=== PATIENT | female | born 2000 | race Caucasian/White ===

== ENCOUNTER 2023-10-27 07:36 | Outpatient (CLI) | payer OTHER, SELFPAY ==
[2023-10-27 09:15] LABS: Free T4 Free Thyroxine 0.85 ng/mL (0.78-2.19)
[2023-10-28 22:33] LABS: Insulin Level Total 11.4 uIU/mL
[2023-10-29 06:14] LABS: DHEA-Sulfate 262 mcg/dL (14-349); Prolactin 10.3 ng/mL
[2023-10-31 09:03] LABS: Testosterone Total 34 ng/dL (2-45)
== END 2023-10-27 07:37 | disposition home or self-care (01) ==
LOC: ANHLAB 07:39
PROVIDERS: PCP Physician Assistant Medical; Visit Provider Nurse Practitioner
DX: N92.6 Irregular menstruation, unspecified (principal)
CPT/HCPCS: 36415; 82627; 83036; 83525; 84144; 84146; 84403; 84439; 84443

== ENCOUNTER 2024-08-18 13:49 | Outpatient (CLI) | payer OTHER, SELFPAY ==
--- NOTE | ~2024-08-18 | CT_ITS ---
CT of the Abdomen and Pelvis: Indication: Abdominal pain Technique: 2.5 mm axial scans were obtained through the abdomen and pelvis following intravenous adm inistration of 100 cc of Omnipaque 350. Dose reduction technique was used on this scan by utilizing a utomated exposure control and iterative reconstruction technique. The dose-length product (DLP) was 8 98.54 mGy-cm. Findings: Scans through the lung bases are unremarkable. The liver, spleen, pancreas, gallbladder, adrenals and kidneys are within normal limits. No evidence of aortic aneurysm. No lymphadenopathy. No bowel obstruction or bowel wall thickening. There is no evidence to suggest acute appendicitis. Images through the pelvis were performed. Urinary bladder unremarkable. No pelvic mass seen. No ascit es. Impression: No significant abnormalities seen. Reviewed, dictated and finalized at location . Impression: No significant abnormalities seen.
--- OUTSIDE RECORDS SUMMARY | 2024-08-18 13:57 | XMS_ITS | Continuity of Care Document ---
Author Organization [facility] Address [address] [place] [address] Phone Care Team Providers Care Bill Distributor Name Role Phone Haim Huff MD Unavailable Unavailable Allergies, Adverse Reactions, Alerts Substance Reaction Status Criticality No Known Drug Allergies Other Active No I nformation Medications Medication Instructions Dosage Effective Dates (start - stop) Status Comments ProAir HFA 90 mcg/actuation aerosol inhaler inhale 2 puff by inhalation route every 4 - 6 hours as needed - Active Arnuity Ellipta 100 mcg/actuation powder for inhalation inhale 1 puff by inhalation route every day at the same time each day 100 MCG - Active Procedures Procedure Date HEALTH RISK ASSESSMENT, PATIENT-FOCUSED OFFICE [id number] OFFICE [id number] Advance Directives Directive Yes / No Effective Date File Name No Information Encounters Encounter Description Practice Location Reason(s) For Visit Diagnoses Date Provider Providers Copied on Encounter [facility], [address], [place], [place], [id number] , [place] tel: [phone] [facility] [place] No Information 1 [address]ug[address] [place] [address], [id number], [place]. [phone] OFFICE [id number] TAILED [facility], [address], [place], [place], [id number] , [place] tel: [phone] [facility] [place] asthma (chief complaint) Asthma-con trol (chief complaint) Mild intermittent asthma, uncomplicated Sep-0 [address] [place] [address], [id number], . tel:[phone] Referring Provider: Trever Molina, [address] [place] [address] [address] [facility], [place], [address]. tel:[phone] OFFICE [id number] TAILED [facility] [facility], [address] [place] [address], [id number] , tel: [phone] [facility] [place] asthma (chief complaint) Mild intermittent asthma, uncomplicated May-2 [address] [place] [address], [id number], . tel:[phone] Referring Provider: Trever Molina, [address] [place] [address] [address] [facility], [place], [address]. tel:[phone] [employer] [facility], [address] [place] [address], [id number] , tel:[phone] [facility] Mild intermittent asthma, uncomplicatedVaso motor rhinitis [address] [place] [address], [id number], . tel:[phone] Referring Provider: Haim Huff, [address] [place] [address], [id number] . tel:[phone] [facility], [address] [place] [address], [id number] , tel:[phone] [facility] Mild intermittent asthma without complication [address] [place] [address], [id number], . tel:[phone] Referring Provider: Haim Huff, [address] [place] [address], [id number] . tel:[phone] [facility], [address] [place] [address], [id number] , tel: [phone] [facility] INTRINSIC ASTHMA, UNSPECIFIED Nov-0 6 4 Refugio Whitmore. [address] [facility], [address], [id number], [place]. tel:[phone] Referring Provider: Trever Molina, [address] [place] [address] [address] [facility], [place], [address]. tel:[phone] [facility], [address], [place], [place], [id number] , [place] tel: [phone] [facility] INTRINSIC ASTHMA, UNSPECIFIED Sep-3 0-201 3 Refugio Whitmore. [address] [place] [address], [address], [id number], . tel:[phone] Referring Provider: Adria Escalante, [address] [place] [address], [address]. tel:[phone] [facility], [address], [place], [place], [id number] , tel: [phone] [facility] INTRINSIC ASTHMA, UNSPECIFIED Sep-1 2 Refugio Whitmore. [address], [id number], [place]. tel:[phone] Referring Provider: Adria Escalante, [address] [place] [address], [address]. tel:[phone] [facility], [address], [place], [id number] , tel: [phone] [facility] INTRINSIC ASTHMA, UNSPECIFIED Mar-1 2 Refugio Whitmore. [address] [facility], [address], [id number], [place]. tel:[phone] Referring Provider: Trever Molina, [address] [place] [address] [address] [facility], [place], [address]. tel:[phone] [facility], [address], [place], [id number] , tel: [phone] [facility] Sep-1 5 1 Refugio Whitmore. [address] [address], [id number], . tel:[phone] Referring Provider: Trever Molnia [address] [place] [address] [address], [place], [address]. tel:[phone] [facility], [address], [place], [place], [id number] , tel: [phone] [facility] INTRINSIC ASTHMA, UNSPECIFIEDOther diseases of nasal cavity and sinuses 4-201 [address] [place] [address], [id number], . tel:[phone] Referring Provider: Trever Molina [address] [place] [address] [address], [place], [address]. tel:[phone] [facility], [address], [place], [place], [id number] , [place] tel: [phone] [facility] INTRINSIC ASTHMA NOS Nov-2 0-[address] [place] [address], [id number], [place]. tel:[phone] [facility], [address], [place], [place], [id number] , [place] tel: [phone] [facility] ASTHMA NOS 5-201 0 [facility]. [address] [place] [address], [address], [place]. [facility], [address], [place], [place], [id number] , [place] tel: [phone] [facility] INT ASTHMA W (AC) EXAC 9-[address] [place] [address], [id number], [place]. tel:[phone] [facility], [address], [place], [place], [id number] , [place] tel: [phone] [facility] NASAL & SINUS DIS NEC 0-200 6 [facility]. [address] [place] [address], [address], [place]. [facility], [address], [place], [place], [id number] , [place] tel: [phone] [facility] No Information 6 Refugio Whitmore. [address] [place] [address], [place] [address], [place], [place], [id number], [place]. [phone] Family History Family Member Type Diagnosis Age At Onset No Information Immunizations Vaccine Date Status Comments Influenza, seasonal, injectable (3 yrs or older) administered Source: New Immunization Record Payers Payer name Insurance type Covered green party ID Jessicaa twila(s) [facility] [id number] [facility] [id number] Social History Type Description Quantity Date Captured Comments Sex Female Smoking Status No Information Sexual Orientation Straight or heterosexual Chief Complaint And Reason For Visit No Information Reason For Referral Reason For Referral No Information History Of Present Illness Encounter Date Complaint History Of Prese nt Illness asthma asthma (comments) [facility].Last [facility] visit 06/14/19 (Telehealth too) and before this on 05/11/18 Had positive COVID-19 test on Thursday of last week with increased SOB intermittently (miller at night and early AM) but overall no worse than other colds. Started back on her Arnuity 100, 1 click qd for this this with resulting improvement she feels. Had used this earlier this spring for URI triggered exacerbation and then discontinued for the summer. At last visit was finding the Proair somewhat helpful and this time as in past says it actually seems to make her chest feel worse (more cough).So far no trouble with weather change this fall. 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 Used Proair ~ twice per week in the spring/fall for chest congestion in 2019 usually with weather changes. No trouble at night though. Asthma-control Veronica was seen t [facility] for asthma management. Her asthma is classified as Mild Intermittent.Since Her last visit for asthma control on 06/14/2019, She has had asthma related:-hospitalizations: NO-ER/Urgent care visits: NO-oral steroids: NO-rescue inhaler use: YES-Missed school/work: NOAsthma Control Test score: 241. Unlimited activity: None of the time (5)2. Caused shortness of breath: Not at all (5)3. Interrupted sleep: Not at all (5)4. How often using rescue med: Not at all (5)5. Personal rating of control: Well controlled (4)The asthma is Well Controlled.Known triggers include: exercise.Environmental exposure/control:Tobacco exposure: NOPets/animals: YES, 1 dogPrevious allergy testing was on 03/25/2005. Results - negative.Spirometry was last performed on 05/11/2018. asthma asthma (comments) I spoke to the patient via [facility] program.Last office visit 05/11/18 and before this on 03/25/16History of EIA that is treated with Proair PRN and a brief trial of Breo 100.Last year played soccer at college and was just starting her Spring training - used the Proair MDI prn - typically only when she was playing soccer. 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 NEGATIVE allergy testing on 03/25/2005. Functional Status Date Functional Assessmen t No Information Instructions Date Instruction Additional Infor anthony We [facility] for your visit todayAsthma is overall stable. ACT = 24 Continue with present daily controller medication (Arnuity 100, 1 puff once daily) unchanged for the next 2 months and then try off if no further colds triggering. I reviewed the benefits and risks including side effects of this medication. We discussed the use of rescue medication (Proair). Please call for the frequent use of your rescue inhaler (beyond that discussed above) or difficulties with your asthma causing frequent night time awakeningsWill get flu shot at work this fall hopefully Related to Mild intermittent asthma, uncomplicated Medication management Medication management We spoke via [employer] for your visit today.Asthma has not been optimally controlled on Proair intermittently, requiring a change in medication or additional medication. I recommend a trial of Arnuity 100, 1 click once daily (reviewed use and rinsing/brushing afterward). May use this daily in the spring and fall. I reviewed the benefits and risks including side effects of this medication. We discussed the use of rescue medication (Proair). Please call for the frequent use of your rescue inhaler (beyond that discussed above) or difficulties with your asthma causing frequent night time awakenings, difficulties with your ability to exercise, or prolonged cough associated with viral colds.. Related to Mild intermittent asthma, uncomplicated Medication management Assessments Type Assessment Date No Information Patient Care Teams Name Effective Dates (start - stop) Status Members No Information
== END 2024-08-18 13:50 | disposition home or self-care (01) ==
PROVIDERS: PCP Physician Assistant Medical; Visit Provider Physician Assistant Medical
DX: R10.9 Unspecified abdominal pain (principal)
CPT/HCPCS: 74177; Q9967